=== PATIENT | male | born 1970 | race Hispanic/Latino ===

== ENCOUNTER 2021-03-30 03:17 | Emergency (ER) | payer BC, SELFPAY ==
[~2021-03-30] VITALS: Ht 175.3 cm; Wt 126.1 kg
[2021-03-30 04:13] LABS: BASOPHILS % (AUTO) 0.7 % (0.0-5.0); EOSINOPHILS % (AUTO) 0.6 % (0.0-8.0); HEMATOCRIT 44.6 % (42-54); LYMPHOCYTES % (AUTO) 33.4 % (21.0-51.0); MEAN CORPUSCULAR HEMOGLOBIN 28.8 pg (27.0-33.0); MEAN CORPUSCULAR HGB CONC 33.4 g/dL (32.0-36.0); MEAN CORPUSCULAR VOLUME 86.3 fL (79-99); MONOCYTES % (AUTO) 6.4 % (3.0-13.0); NEUTROPHILS % (AUTO) 58.8 % (40.0-77.0); PLATELET COUNT (AUTO) 234 K/uL (130-400); RED BLOOD CELL COUNT(AUTO) 5.17 MIL/uL (4.50-6.20); RED CELL DISTRIBUTION WIDTH 13.2 % (11.0-15.5); WHITE BLOOD COUNT (AUTO) 6.9 K/uL (4.8-10.8)
[2021-03-30 04:24] LABS: APPEARANCE,URINE Clear (CLEAR); BILIRUBIN,URINE Negative (NEGATIVE); COLOR,URINE Yellow (YELLOW); GLUCOSE, URINE (UA) Negative (NEGATIVE); KETONES,URINE Trace mg/dL (NEGATIVE); LEUKOCYTE ESTERASE ,URINE Trace (NEGATIVE); NITRATE,URINE Negative (NEGATIVE); OCCULT BLOOD,URINE Negative (NEGATIVE); PROTEIN,URINE Negative (NEGATIVE)
[2021-03-30 04:27] LABS: POTASSIUM 3.8 mmol/L (3.5-5.1)
[2021-03-30 04:31] LABS: BILIRUBIN,TOTAL 1.3 mg/dL (0.2-1.0); TOTAL PROTEIN, SERUM 7.4 g/dL (6.0-8.3)
[2021-03-30 05:40] LABS: BACTERIA,URINE None Seen /HPF (None Seen); RBC,URINE 0-1 /HPF (0-1); SQUAMOUS EPITHELIAL CELL,UR Few /HPF (0-2)
[2021-03-30] MEDS ORDERED: SOLU-MEDROL 125MG VIAL ONE (06:46)
[2021-03-30] MEDS ORDERED: SOLU-MEDROL 125MG VIAL IVP ONE (07:00)
[2021-03-30] MEDS ORDERED: VALA100031 PO (07:20)
[2021-03-30] MEDS ORDERED: PRED20TA3 PO (07:20)
[2021-03-30] MEDS ORDERED: MINE3.5O41 OP (07:24)
[2021-03-30 07:50] VITALS: BP 130/63
== END 2021-03-30 07:59 | disposition home or self-care (01) ==
LOC: EDH 03:17
DX: G51.0 Bell's palsy (principal); I11.9 Hypertensive heart disease without heart failure; Z79.52 Long term (current) use of systemic steroids
CPT/HCPCS: 36415; 80053; 81001; 85025; 96374; 99284; J2930

== ENCOUNTER 2023-06-18 09:38 | Emergency (ER) | payer BC ==
[~2023-06-18] VITALS: Ht 175.3 cm; Wt 131.5 kg
[~2023-06-18 09:38] MED LIST: MINE3.5O41 OP; PRED20TA3 PO; VALA100031 PO
[2023-06-18 10:00] LABS: BASOPHILS # (AUTO) 0.07 K/uL (0.00-0.20); BASOPHILS % (AUTO) 1.5 % (0.0-5.0); EOSINOPHILS # (AUTO) 0.05 K/uL (0.00-0.70); EOSINOPHILS % (AUTO) 1.1 % (0.0-8.0); HEMATOCRIT 28.5 % (42-54); IMMATURE GRANULOCYTE ABSOLUTE 0.01 K/uL (0-1); LYMPHOCYTES # (AUTO) 1.7 K/uL (1.0-4.8); MEAN CORPUSCULAR HEMOGLOBIN 22.8 pg (27.0-33.0); MEAN CORPUSCULAR HGB CONC 30.2 g/dL (32.0-36.0); MEAN CORPUSCULAR VOLUME 75.6 fL (79-99); MONOCYTES # (AUTO) 0.5 K/uL (0.1-1.0); MONOCYTES % (AUTO) 9.9 % (3.0-13.0); NEUTROPHILS # (AUTO) 2.4 K/uL (1.8-7.7); NEUTROPHILS % (AUTO) 51.3 % (40.0-77.0); PLATELET COUNT (AUTO) 375 K/uL (130-400); RED BLOOD CELL COUNT(AUTO) 3.77 MIL/uL (4.50-6.20); RED CELL DISTRIBUTION WIDTH 14.9 % (11.0-15.5); WHITE BLOOD COUNT (AUTO) 4.7 K/uL (4.8-10.8)
[2023-06-18 10:12] LABS: ALBUMIN 3.6 g/dL (3.5-5.0); BILIRUBIN,TOTAL 0.5 mg/dL (0.2-1.0); CREATININE 1.1 mg/dL (0.5-1.3); POTASSIUM 4.7 mmol/L (3.5-5.1); TOTAL PROTEIN, SERUM 7.3 g/dL (6.0-8.3)
[2023-06-18 10:37] LABS: APPEARANCE,URINE CLEAR (CLEAR); BILIRUBIN,URINE NEGATIVE (NEGATIVE); COLOR,URINE LIGHT-YELLOW (YELLOW); GLUCOSE, URINE (UA) NEGATIVE (NEGATIVE); KETONES,URINE NEGATIVE (NEGATIVE); LEUKOCYTE ESTERASE ,URINE NEGATIVE Leu/uL (NEGATIVE); NITRATE,URINE NEGATIVE (NEGATIVE); OCCULT BLOOD,URINE NEGATIVE (NEGATIVE); PROTEIN,URINE NEGATIVE (NEGATIVE); UROBILINOGEN,URINE 0.2 mg/dL (0.2-1.0)
[2023-06-18 10:42] LABS: ADD UA MICROSCOPIC NO
[2023-06-18 10:47] LABS: INR <= 0.93 (0.85-1.15); PROTHROMBIN TIME 10.3 SEC (9.6-11.6)
[2023-06-18 10:48] LABS: PARTIAL THROMBOPLASTIN TIME 27.6 SEC (26.3-35.5)
[2023-06-18 12:00] VITALS: BP 141/68; PULSE 70; RESP 20; O2SAT 100
[2023-06-18] MEDS ORDERED: FERR1TAB PO (12:02)
[2023-06-18] MEDS ORDERED: DOCU-116 PO (12:02)
[2023-06-18 14:58] LABS: % IRON SATURATION 36.6 % (30-44)
== END 2023-06-18 12:16 | disposition home or self-care (01) ==
LOC: EDH 09:38
DX: D50.8 Other iron deficiency anemias (principal); I10 Essential (primary) hypertension; D64.9 Anemia, unspecified; D69.6 Thrombocytopenia, unspecified; Z90.89 Acquired absence of other organs; Z79.899 Other long term (current) drug therapy
CPT/HCPCS: 36415; 80053; 81003; 82728; 83540; 83550; 85025; 85610; 85730; 86850; 86900; 86901

== ENCOUNTER → 2025-02-10 | Emergency (ER) | payer OTHER, BC ==
[~2025-02-10] VITALS: Ht 172.7 cm; Wt 122.9 kg
[~2025-02-10] MED LIST changes: +DOCU-116 PO; +FERR1TAB PO; -MINE3.5O41 OP; -PRED20TA3 PO; -VALA100031 PO
--- NOTE | 2025-02-10 17:46 | ERN ---
ED Note History of Present Illness Stated Complaint: HEAD INJURY Chief Complaint: Head Injury Time Seen by MD: 17:37 Dictation: Has a 54-year-old male coming in today with complaints of hitting his head on some boxes while he was at work on . He said he bent down and when he stood up he hit his head on the box on his left occiput. There was no LOC no nausea vomiting he is on no blood thinners. He states he has not taken anything for headache since the incident occurred on . He did not go to the emergency room on /Wednesday and waited too today because the headache has not gone away. When I asked him what he has taken for the headache again he states I have taken nothing has I am not a headache joann on-call poked. Patient is alert and oriented x4 speech is clear. NIH is 0 gait is steady. No lucero no raccoon sign. No indication for a CT of the head under the [place] CT head rules. Allergies: Coded Allergies: No Known Drug Allergies (Unverified Allergy, Unknown, 03/30/21) Home Meds Active Scripts Docusate Sodium (Colace) 100 Mg Capsule, 100 MG PO TID for constipation for 30 D ays, #30 CAP 0 Refills TAKE WITH 16 OZ WATER EACH DOSE Prov:BROOKLYN BOWSER 06/18/23 Ferrous Sulfate/Vit C/FA (Folitab 500 Caplet) 105 Mg Iron-500 Mg-800 Mcg Tablet.er, 1 EACH PO DAILY, #30 TAB Prov:BROOKLYN BOWSER 06/18/23 Past Medical History Past Medical History: Anemia, Heart Disease, Hypertension Surgical History: Tonsillectomy RN Note Reviewed/Agreed w/PFSH: Yes Review of System Dictation CONSTITUTIONAL: Negative except for HPI HEAD/FACE: Negative except for HPI EENT: Negative except for HPI RESPIRATORY: Negative except for HPI GASTROINTESTINAL/ABDOMINAL: Negative except for HPI GENITOURINARY: Negative except for HPI MUSCULOSKELETAL: Negative except for HPI INTEGUMENTARY: Negative except for HPI NEUROLOGICAL/PSYCH: Negative except for HPI headache HEMATOLOGIC/LYMPHATIC: Negative except for HPI All Systems Negative, Except as noted above. 13 point review of systems assessed and all negative except for above. Initial Vital Sign VS Vital Signs Date Time Temp Pulse Resp B/P (MAP) Pulse Ox O2 Delivery O2 Flow Rate FiO2 02/10/25 17:37 98.1 67 16 116/60 99 Room Air 0 02/10/25 17:57 21 Physical Exam Dictation Vital Signs reviewed General Appearance: Alert, oriented x 3, no acute distress, well developed, nourished. Head and Face: non-traumatic. No hematoma so no lucero or raccoon sign Eyes: PERRL, pink conjunctivas, eyelid no trauma, anterior chamber with arcus senilis. Ears: Pinnas intact and no signs of trauma or erythema ear canals clear and no discharge TM no erythema no hemotympanum Nose: No discharge, no bleeding. Oropharynx: Mouth normal, tongue pink, pharynx clear,no erythema, tonsils no exudates, no abscesses noted, mucous membrane moist Neck: Supple, non-tender, no thyromegaly, no masses, no JVD, no bruits Breast:Deferred Chest:No tenderness, no crepitus, no paradoxical movement, no retractions Lungs:Clear, well-ventilated, symmetric, no rales, no wheezing, no rhonchi, no stridor, good breath sounds bilaterally Heart: Regular rate, regular rhythm, no murmur, no gallops Vascular: no peripheral edema, Abdomen: Soft, positive bowel sounds, nondistended, no guarding, nontender, no rebound, no masses no hepatomegaly, no splenomegaly, no Bee's sign, no hernias. Rectal: Deferred Genital: Deferred Neurological: Normal speech, motor function intact, sensory function intact NIH is 0 Musculoskeletal: Neck nontender, full range of motion, back nontender, full range of motion, Extremities: nontender, full range of motion Skin: Color pink, dry, no turgor, no rash, no lacerations, no abrasions, no contusions. Lymphatic: Deferred Results (Laboratory/Radiology) Labs Reviewed?: Yes ED Course ED Course Orders Procedure Category Date Status Time Acetaminophen 500mg PHA 02/10/25 In Process Tab (Tylenol 500mg T 18:30 Current Medications Medications (Trade) Dose Ordered Sig/Sita Route PRN Reason Start Time Stop Time Status Last Admin Dose Admin Acetaminophen (TYLenol 500MG TAB) 1,000 mg ONCE ONCE PO 02/10/25 18:30 02/10/25 18:31 02/10/25 18:07 Vital Signs Date Time Temp Pulse Resp B/P (MAP) Pulse Ox O2 Delivery O2 Flow Rate FiO2 02/10/25 17:57 98.2 70 17 117/58 99 Room Air* 0 21 02/10/25 17:37 98.1 67 16 116/60 99 Room Air 0 1745/patient was seen and evaluated in triage. No indication for CT of the head under [place] CT head rules This was explained to patient at length and he was strongly advised to take something for the headache See his doctor at [facility] on Wednesday. Was invited to return back to the emergency room if any changes from head injury information sheet 1830/spoke to patient in his at length regarding my evaluation and recommendations. I advised him that no CAT scan we will be done at this time. However I assured him I would write him out of work until cleared by Neurosurgery he was provided the name of He is aware to call for an appointment on Wednesday and follow up recommended advanced imaging. Medical Decision Making MDM Medical decision-making based on HPI, physical examination Evaluation using the CT head guidelines No indications for CT at this time. Patient will be given Tylenol for headache since nothing has been taking since the original injury Closed head injury information given to him in his . All questions answered DX & DISP Disposition: Discharge Departure Impression: Primary Impression: Posttraumatic headache Additional Impression: Minor head trauma Condition: Stable Additional Instructions: Follow-up with primary care provider in 1 to 2 days. Take medications as directed here in the emergency room. Okay to continue home medications unless otherwise discussed during your visit in the emergency room today. Return to your nearest emergency room if symptoms worsen or if there is no improvement. Call 911 if you need immediate assistance. Take Tylenol or Motrin ov [id number] as needed and if no contraindications are present. Increase oral hydration. A wound culture or urine culture was ordered here in the emergency room department please follow-up with primary care provider and advise them to get repeat ports from our facility. If you had any Roosevelt wrap/splints that were applied here, please do not remove them until you see your primary care or specialty. Tylenol or Motrin [id number] as needed for headache. No work until cleared by Dr. Thompson//neurosurgeon on Wednesday. Call for an appointment Wednesday Referrals: JANICE LAM MD (PCP) JACKI THOMPSON MD Time of Disposition: 17:45 I have reviewed the case, and I agree with, Diagnosis and Plan KALPANA MENDIOLA SUPERVISOR MET[employer]IZING Feb 10, 2025 17:46
[2025-02-10 17:57] VITALS: BP 117/58; PULSE 70; RESP 17; TEMP 98.3; O2SAT 99
--- NOTE | 2025-02-10 18:33 | NUR ---
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 PT DRIVEN HOME BY .
== END ==
LOC: EDH 17:34
DX: G44.309 Post-traumatic headache, unspecified, not intractable (principal); S09.90XA Unspecified injury of head, initial encounter; I11.9 Hypertensive heart disease without heart failure; Z90.89 Acquired absence of other organs; W22.09XA Striking against other stationary object, initial encounter; Y93.89 Activity, other specified; Y92.69 Other specified industrial and construction area as the place of occurrence of the external cause; Y99.0 Civilian activity done for income or pay
CPT/HCPCS: 99282